=== PATIENT | female | born 1975 | race Caucasian/White ===

== ENCOUNTER → 2017-09-25 | Outpatient (CLI) | payer OTHER ==
[~2017-09-25] MED LIST: ACEBUTCAFT PO; ASPI81CH PO; Cleocin HCl300 MG PO; FLONASE ALLERG9.9 ML NS; GUAI600T33 PO; IBUP800 PO; IRON325 MG PO; LABE100 PO; LABE200 PO; LEVSOD75 PO; LEVSOD88 PO; LISI10 PO; LOPE2C PO; LORA1 PO; METF500 PO; NIFE60ER PO; OXYACE5T PO; PROM25 PO; Verotin-Gr Cap1 EACH PO
[2017-09-25 17:05] LABS: BASOPHILS ABSOLUTE AUTO 0.02 K/mm3 (0.00-0.23); BASOPHILS PERCENT AUTO 0 % (0-2); EOSINOPHILS ABSOLUTE AUTO 0.09 K/mm3 (0.00-0.68); EOSINOPHILS PERCENT AUTO 2 % (0-6); Hematocrit 35.7 % (33.0-51.0); Hemoglobin 12.1 g/dL (11.5-16.0); IMMATURE GRAN ABSOLUTE AUTO 0.02 K/mm3 (0.00-0.10); IMMATURE GRAN PERCENT AUTO 0 % (0-1); LYMPHOCYTES PERCENT AUTO 34 % (21-46); MONOCYTES ABSOLUTE AUTO 0.42 K/mm3 (0.16-1.47); MONOCYTES PERCENT AUTO 7 % (4-13); Mean Corpuscular HGB 28.9 pg (26.0-34.0); Mean Corpuscular HGB Conc 33.9 g/dL (31.5-36.5); Mean Corpuscular Volume 85 fL (80-100); Mean Platelet Volume 9.6 fL (9.1-12.4); NEUTROPHILS ABSOLUTE AUTO 3.32 K/mm3 (1.96-9.15); NEUTROPHILS PERCENT AUTO 57 % (41-73); Platelet Count 184 K/mm3 (150-400); RDW Coefficient Variation 13.2 % (11.7-14.2); RDW Standard Deviation 40.8 fL (35.1-46.3); Red Blood Cell Count 4.19 M/mm3 (3.80-5.20); White Blood Cell Count 5.87 K/mm3 (4.00-11.30)
[2017-09-25 17:09] LABS: Anion Gap 10 mmol/L (6-16); Blood Urea Nitrogen 15 mg/dL (8-24); Bun/Creatinine Ratio 15.6 (12.0-20.0); CO2, Blood 27 mmol/L (21-32); Calcium, Blood 9.1 mg/dL (8.5-10.1); Chloride, Blood 106 mmol/L (98-108); Creatinine, Blood 0.96 mg/dL (0.40-1.00); Glomerular Filtration Rate >60 (60-); Glucose, Blood 117 mg/dL (70-99); Potassium, Blood 4.2 mmol/L (3.5-5.5); Sodium, Blood 143 mmol/L (136-145)
== END | disposition home or self-care (01) ==
LOC: LAB EV 17:00
PROVIDERS: Family Medicine
DX: R10.30 Lower abdominal pain, unspecified (principal)
CPT/HCPCS: 80048; 83690; 85025

== ENCOUNTER 2019-01-07 09:05 | Emergency (ER) | payer OTHER ==
[~2019-01-07] VITALS: Ht 167.6 cm; Wt 108.9 kg
[~2019-01-07 09:05] MED LIST changes: +LEVSOD50 PO; -LEVSOD88 PO
[2019-01-07] MEDS ORDERED: ALBU90OI61 INH (09:22)
[2019-01-07] MEDS ORDERED: Prinivil10 MG PO (09:22)
[2019-01-07] MEDS ORDERED: Norco 5-325 Ta1 EACH PO (10:04)
== END 2019-01-07 10:13 | disposition home or self-care (01) ==
LOC: ER 09:05
DX: M06.9 Rheumatoid arthritis, unspecified (principal); R51 Headache; G56.00 Carpal tunnel syndrome, unspecified upper limb
CPT/HCPCS: 99283

== ENCOUNTER → 2019-11-08 | Outpatient (CLI) | payer OTHER ==
[~2019-11-08] MED LIST changes: +ALBU90OI61 INH; +Norco 5-325 Ta1 EACH PO; +Prinivil10 MG PO
== END | disposition home or self-care (01) ==
LOC: LAB SHORT 18:35 → LAB 18:35
DX: R30.0 Dysuria (principal)
CPT/HCPCS: 87077; 87086; 87186

== ENCOUNTER 2019-12-26 22:20 | Emergency (ER) | payer SELFPAY ==
[~2019-12-26] VITALS: Ht 167.6 cm; Wt 99.8 kg
[2019-12-26] MEDS ORDERED: IBUP200 PO (23:11)
== END 2019-12-27 00:20 | disposition home or self-care (01) ==
LOC: ER 22:20
DX: S46.001A Unspecified injury of muscle(s) and tendon(s) of the rotator cuff of right shoulder, initial encounter (principal); J45.909 Unspecified asthma, uncomplicated; I10 Essential (primary) hypertension; E03.9 Hypothyroidism, unspecified; F32.9 Major depressive disorder, single episode, unspecified; Z88.0 Allergy status to penicillin; Z79.899 Other long term (current) drug therapy; Z79.84 Long term (current) use of oral hypoglycemic drugs; Z79.51 Long term (current) use of inhaled steroids; X58.XXXA Exposure to other specified factors, initial encounter
CPT/HCPCS: 73030; 99283-25; A9270

== ENCOUNTER 2022-04-30 13:14 | Emergency (ER) | payer OTHER ==
[~2022-04-30] VITALS: Ht 167.6 cm; Wt 117.9 kg
[~2022-04-30 13:14] MED LIST changes: +IBUP200 PO; -LEVSOD50 PO; -METF500 PO; -Prinivil10 MG PO; +Voltaren100 GM TOP
[2022-04-30] MEDS ORDERED: METF500C PO (14:01)
[2022-04-30] MEDS ORDERED: NEURONTIN300 MG (14:01)
[2022-04-30] MEDS ORDERED: Hydroxychloroq200 MG PO (14:02)
[2022-04-30] MEDS ORDERED: NORTRIPTYLINE H2511 PO (14:02)
[2022-04-30] MEDS ORDERED: LEVSOD112 PO (14:03)
[2022-04-30] MEDS ORDERED: NAPROXEN500 MG PO (14:03)
[2022-04-30] MEDS ORDERED: LIOT5 PO (14:04)
[2022-04-30] MEDS ORDERED: FAMO20 PO (14:04)
[2022-04-30] MEDS ORDERED: HYDCHL12.5 PO (14:04)
[2022-04-30] MEDS ORDERED: MELA3 PO (14:05)
[2022-04-30] MEDS ORDERED: Zestril30 MG PO (14:05)
[2022-04-30] MEDS ORDERED: OMEP20ER PO (14:06)
[2022-04-30] MEDS ORDERED: Methocarbamol750 MG PO (14:06)
[2022-04-30] MEDS ORDERED: METHOTREXA25 MG/1 M8 SC (14:14)
[2022-04-30] MEDS ORDERED: HYDR1TAB94 PO (14:21)
[2022-04-30] MEDS ORDERED: PROM25 PO (14:21)
== END 2022-04-30 14:50 | disposition home or self-care (01) ==
LOC: ER 13:14
DX: U07.1 COVID-19 (principal); Z28.310 Unvaccinated for COVID-19; Z88.0 Allergy status to penicillin; Z79.899 Other long term (current) drug therapy; Z79.84 Long term (current) use of oral hypoglycemic drugs
CPT/HCPCS: 99283

== ENCOUNTER → 2022-12-05 | Outpatient (CLI) | payer OTHER ==
[~2022-12-05] MED LIST changes: +FAMO20 PO; +HYDCHL12.5 PO; +HYDR1TAB94 PO; +Hydroxychloroq200 MG PO; +LEVSOD112 PO; +LIOT5 PO; +MELA3 PO; +METF500C PO; +METHOTREXA25 MG/1 M8 SC; +Methocarbamol750 MG PO; +NAPROXEN500 MG PO; +NEURONTIN300 MG; +NORTRIPTYLINE H2511 PO; +OMEP20ER PO; +Zestril30 MG PO
== END | disposition home or self-care (01) ==
LOC: LAB SHORT 13:00 → LAB 13:00
DX: R39.11 Hesitancy of micturition (principal)
CPT/HCPCS: 87086

== ENCOUNTER → 2022-12-10 | Outpatient (CLI) | payer OTHER ==
[2022-12-11 07:38] LABS: Candida species (DNA Probe) Positive (NEGATIVE); G. vaginalis (DNA Probe) Positive (NEGATIVE); T. vaginalis (DNA Probe) Negative (NEGATIVE)
== END | disposition home or self-care (01) ==
LOC: LAB SHORT 14:30 → LAB 14:30
PROVIDERS: Nurse Practitioner Family
DX: N76.3 Subacute and chronic vulvitis (principal)
CPT/HCPCS: 87480; 87510; 87660

== ENCOUNTER 2023-01-16 17:57 | Emergency (ER) | payer OTHER ==
[~2023-01-16] VITALS: Ht 165.1 cm; Wt 124.7 kg
[2023-01-16 18:03] VITALS: BP 156/114
== END 2023-01-16 19:00 | disposition home or self-care (01) ==
LOC: ER 17:57
DX: S90.02XA Contusion of left ankle, initial encounter (principal); S90.211A Contusion of right great toe with damage to nail, initial encounter; S80.812A Abrasion, left lower leg, initial encounter; S80.811A Abrasion, right lower leg, initial encounter; I10 Essential (primary) hypertension; E03.9 Hypothyroidism, unspecified; Z88.0 Allergy status to penicillin; Z79.899 Other long term (current) drug therapy; W20.8XXA Other cause of strike by thrown, projected or falling object, initial encounter
CPT/HCPCS: 73610; 96372; 99283-25; J1885

== ENCOUNTER 2023-02-08 06:03 | Day surgery (SDC) | payer OTHER ==
[~2023-02-08] VITALS: Ht 167.6 cm; Wt 123.7 kg
[2023-02-08] MEDS ORDERED: ADTHYZA PO (06:44)
[2023-02-08 11:07] VITALS: BP 123/67
--- NOTE | 2023-02-08 14:43 | NUR ---
02/08/23 1443 Chucky Mccormick INITITALLY IN STEP DOWN, PULSE OXEMETERY WAS PLACED ON PT'S EAR LOBE AND SHOWED FREQUENT DROPS INTO 80'S WHILE PATIENT WAS ON ROOM AIR. PT WAS GIVEN INCENTIVE SPIROMETERY AND INSTRUCTED IN ITS USE. DR. HUMPHREY WAS CONSULTED. PT WAS INSTRUCTED TO TRY USING TYLENOL AND IBUPROFEN AT HOME FOR PAIN CONTROL, BEFORE PERSCRIPTION PAIN MEDICATION, AND TO GO TO ED FOR SHORTNESS OF BREATH , PER DR. HUMPHREY'S DIRECTIONS. AFTER CONSULTATION WITH DR. HUMPHREY, SHE WAS ALSO GIVEN ORAL PAIN MEDICATION RATHER THAN IV FENTANYL, PER DR. HUMPHREY'S INSTRUCTIONS. PATIENT WAS MOVED TO COMPLETELY UPRIGHT POSITION AND PULSE OXYMETERY WAS MOVED FROM PT'S EAR LOBE TO FINGER AT 1120. PT SUSTAINED O2 LEVELS ABOVE 95% AFTER THAT TIME. PT DENIED SIGNS OR SYMPTOMS OF HYPOXIA AFTER THIS TIME--INCLUDING SHORTNESS OF BREATH, DIZZINESS, OR CYANOSIS--AND NONE WERE OBSERVED. PT REPORTED 3-4/10 PAIN AT TIME OF DISCHARGE BUT DESCRIBED PAIN TOLERABLE. SHE APPEARED RELAXED, EXPRESSED READINESS TO GO HOME, AND THANKED STAFF FOR THEIR CARE.
== END 2023-02-08 12:40 | disposition home or self-care (01) ==
LOC: ORSCSDS 06:03
PROVIDERS: Podiatrist Foot & Ankle Surgery
PROC: 0LXV0ZZ Transfer Right Foot Tendon, Open Approach (ICD-10-PCS; principal; 2023-02-08 07:30)
PROC: 01BG0ZZ Excision of Tibial Nerve, Open Approach (ICD-10-PCS; principal; 2023-02-08 07:30)
DX: G57.61 Lesion of plantar nerve, right lower limb (principal); M20.5X1 Other deformities of toe(s) (acquired), right foot; I10 Essential (primary) hypertension; G47.33 Obstructive sleep apnea (adult) (pediatric); E03.9 Hypothyroidism, unspecified; K21.9 Gastro-esophageal reflux disease without esophagitis; Z79.84 Long term (current) use of oral hypoglycemic drugs; E28.2 Polycystic ovarian syndrome; Z79.899 Other long term (current) drug therapy
CPT/HCPCS: 71045; A9270; C1713; J0171; J1100; J1885; J2250; J2405; J2704; J2795; J3010; J3370

== ENCOUNTER → 2024-01-27 | Outpatient (CLI) | payer OTHER ==
[~2024-01-27] MED LIST changes: +ADTHYZA PO; +ALBU90OI; +FOLIC ACID0.4 MG; +HYDSUL200; +PRENATAL TABLE1 EAC9
== END | disposition home or self-care (01) ==
LOC: LAB 10:24 → LAB SHORT 10:24
DX: L02.419 Cutaneous abscess of limb, unspecified (principal)
CPT/HCPCS: 87070; 87075; 87077; 87147; 87186; 87205

== ENCOUNTER → 2024-04-20 | Outpatient (CLI) | payer OTHER ==
[2024-04-22 22:53] LABS: DOUBLE-STRANDED DNA IGG ELISA 8 IU (0-24)
[2024-04-23 04:42] LABS: ANTI-NUCLEAR AB ANA,IGG ELISA None Detected (None Detected)
== END | disposition home or self-care (01) ==
LOC: LAB SHORT 17:22
PROVIDERS: Physician Assistant Medical
DX: M25.552 Pain in left hip (principal)
CPT/HCPCS: 85651; 86038; 86140; 86225; 86430

== ENCOUNTER → 2024-06-25 | Outpatient (CLI) | payer OTHER ==
[2024-06-25 17:41] LABS: Influenza A, PCR NEGATIVE (NEGATIVE); Influenza B, PCR NEGATIVE (NEGATIVE); Resp Syncytial Virus, PCR NEGATIVE (NEGATIVE); SARS-Cov-2 (COVID-19) PCR, MMC NEGATIVE (NEGATIVE)
== END ==
LOC: LAB 15:25 → LAB SHORT 15:25
PROVIDERS: Registered Nurse
DX: R05.9 Cough, unspecified (principal)
CPT/HCPCS: 0241U

== ENCOUNTER → 2024-07-27 | Outpatient (CLI) | payer OTHER | END | disposition home or self-care (01) | LOC: LAB SHORT 14:45 → LAB 14:45 | DX: L08.0 Pyoderma (principal); L30.4 Erythema intertrigo | CPT/HCPCS: 87070; 87205 ==

== ENCOUNTER → 2025-04-25 | Outpatient (CLI) | payer OTHER ==
[2025-04-25 16:02] LABS: BASOPHILS ABSOLUTE AUTO 0.03 K/mm3 (0.00-0.23); BASOPHILS PERCENT AUTO 1 % (0-2); EOSINOPHILS ABSOLUTE AUTO 0.12 K/mm3 (0.00-0.68); EOSINOPHILS PERCENT AUTO 2 % (0-6); Hematocrit 38.5 % (33.0-51.0); Hemoglobin 12.9 g/dL (11.5-16.0); IMMATURE GRAN ABSOLUTE AUTO 0.03 K/mm3 (0.00-0.10); IMMATURE GRAN PERCENT AUTO 1 % (0-1); LYMPHOCYTES ABSOLUTE AUTO 2.05 K/mm3 (0.84-5.20); LYMPHOCYTES PERCENT AUTO 36 % (21-46); MONOCYTES ABSOLUTE AUTO 0.36 K/mm3 (0.16-1.47); MONOCYTES PERCENT AUTO 6 % (4-13); Mean Corpuscular HGB Conc 33.5 g/dL (31.5-36.5); Mean Corpuscular Volume 85 fL (80-100); NEUTROPHILS ABSOLUTE AUTO 3.12 K/mm3 (1.96-9.15); NEUTROPHILS PERCENT AUTO 55 % (41-73); NRBC ABSOLUTE 0.00 K/mm3 (0.00-0.02); NRBC Auto 0.0 /100 WBC (0.0-0.2); Platelet Count 263 K/mm3 (150-400); RDW Coefficient Variation 13.5 % (11.7-14.2); RDW Standard Deviation 41.6 fL (35.1-46.3)
[2025-04-25 16:20] LABS: Alanine Aminotransfer (ALT/SGP 29.0 U/L (12-78); Albumin, Blood 4.0 g/dL (3.4-5.0); Albumin/Globulin Ratio 1.1 (0.8-1.8); Anion Gap 12.0 mmol/L (3-11); Aspartate Aminotrans (AST/SGOT 19.0 U/L (12-37); Bilirubin, Total 0.4 mg/dL (0.1-1.0); Blood Urea Nitrogen 13.0 mg/dL (8-24); CO2, Blood 28.0 mmol/L (21-32); Calcium, Blood 9.7 mg/dL (8.5-10.1); Chloride, Blood 103.0 mmol/L (98-108); Creatinine, Blood 0.79 mg/dL (0.40-1.00); Globulin, Blood 3.8 g/dL (2.2-4.0); Glucose, Blood 118.0 mg/dL (70-99); Potassium, Blood 4.2 mmol/L (3.5-5.5); Sodium, Blood 139.0 mmol/L (136-145); Thyroid Stimulating Hormone 24.847 uIU/mL (0.360-4.800); Total Protein, Blood 7.8 g/dL (6.4-8.2); Uric Acid, Blood 5.8 mg/dL (2.6-6.0)
[2025-04-28 18:54] LABS: VITAMIN B1,WHOLE BLOOD 126 nmol/L (70-180)
== END ==
LOC: LAB SHORT 15:58 → LAB 15:58
PROVIDERS: Physician Assistant
DX: E03.9 Hypothyroidism, unspecified (principal); M25.50 Pain in unspecified joint; R53.83 Other fatigue
CPT/HCPCS: 80053; 84425; 84443; 84550; 85025; 85651